=== PATIENT | male | born 1965 | race Caucasian/White ===

== ENCOUNTER 2018-11-10 09:46 | Emergency (ER) | payer OTHER, SELFPAY ==
[2018-11-10 09:51] VITALS: BP 124/82; PULSE 60; RESP 14; TEMP 36.5; O2SAT 100
--- NOTE | 2018-11-10 10:01 | DI.RAD_ITS ---
SYMPTOM/DIAGNOSIS: MEDIAL KNEE PAIN, TIB PLAT PAIN RIGHT KNEE: No fracture or joint effusion is seen. The joint spaces are well maintained. IMPRESSION: Negative right knee
--- NOTE | 2018-11-10 10:09 | W.ED.GENAD ---
Discharge Plan Disposition Patient Disposition: HOME Condition: Good Discharge Details Chief Complaint: Orthopedic Clinical Impression: Right knee sprain ED Provider: Gerry Godinez Home Meds and New Rx's Prescriptions: No Action No Known Home Meds RF: 0 Discharge Instructions Instructions: Knee Sprain (ED) Additional Instructions: At this time your x-ray is negative for any evidence of fracture. Am concerned for meniscal injury as well as medial collateral ligament injury. I also suspect that some of your pain is from mild Garrido's cyst. Please take Tylenol and Motrin daily to help with the swelling and pain. Please ice your knee frequently, keep the brace on at all times use your crutches to reduce weight and impact on your knee for the next 1 to 2 weeks. We will schedule follow-up with the physician office specialist for you. If you notice any worsening of your symptoms, or any new symptoms such as vomiting, diarrhea, fever, chills, shortness of breath, chest pain, numbness, weakness, or fainting , please return immediately to the emergency department for reevaluation. Please follow up with your primary care provider as soon as possible for reassessment and reevaluation. As always, it was a pleasure participating in your medical care today. Medical Decision Making This is a pleasant 53-year-old male with no significant past medical history who presents today for evaluation of right knee pain. Patient is an avid runner and regularly runs 15 miles. 3 days ago he was running and while running developed a mild ache in his right posterior knee. When he was running a shorter run the subsequent day the posterior pain notably improved however he then developed pain on the medial aspect of his right knee. Worse with movement. Pain is continued he describes it as severe and aching in nature. Worse with movement palpation. Exam demonstrates no joint or ligamentous laxity however he does have notable pain with Jessica's test, as well as valgus stressing. No significant crepitus. He is able to ambulate and bear weight but does have some mild to moderate pain with this. No numbness or tingling, no redness, warmth, or swelling. No clinical evidence of infection. No clinical history of trauma, fall, pop, or coming down hard during his run. X-ray was ordered and is negative for acute process or fracture. It was reviewed with Dr. Brice, and she also sees no clinical evidence of tibial plateau injury. We did discuss further imaging as well as the risks and benefits of this. At this time through shared decision making process we will hold off on any CT scan of the knee. Clinically I do not think that he demonstrates signs and symptoms of a significant tibial plateau fracture. We will give a hinged knee brace, crutches, recommend NSAIDs and ice. Because of his notably proactive running habits, I recommended that he remains off of his knee with no significant running or weightbearing until reassessed by orthopedics. We will set up outpatient orthopedic follow-up for further evaluation. I have extensively reviewed the treatment plan and discharge instructions with the patient. I have addressed all patient concerns at this time. The patient was made aware of what symptoms to monitor for that would warrant a return to the emergency department. Discussed the plan with the patient, they demonstrate verbal understanding and agreement with our assessment and plan at this time. HPI General Date/Time Provider Initiated Documentation: 11/10/18 09:50. HPI Narrative: This is a pleasant 53-year-old male with no significant past medical history who is an avid runner. Patient presents today with pain on the medial aspect of his right knee. He states that 3 days ago he went for a 15 mile run which is very normal for him. At that time he had some mild achiness in the posterior popliteal space. Unchanged with NSAIDs. He took another short run yesterday, and then subsequently developed notable achy stabbing knee pain on the medial aspect of his right knee. Significantly worse with ambulation and movement. He denies any falls, trauma, landing hard on his foot, hearing any pop, or other abnormality. He denies any previous injury to this knee, he denies any steroid use, recent fluoroquinolone use, fever, chills, redness or swelling. He has been using NSAIDs but to no avail for this pain as well. No radiation proximally or distally. No associated numbness or tingling or weakness. No other complaints at this time. No other modifying factors. No recent surgery, pertinent family history, IV or illicit drug use. Related Data Home Medications Medication Instructions Recorded Confirmed Unknown [No Known Home Meds] 11/10/18 11/10/18 Allergies Allergy/AdvReac Type Severity Reaction Status Date / Time cat dander AdvReac Mild asthma/dysp Unverified 11/10/18 09:56 duarte General Stated Complaint: Orthopedic MARIANNE: 4 Review of Systems Review of Systems All systems reviewed & are unremarkable except as noted in HPI and below PFSH Social History Smoking/Tobacco Use Status: Never Drug use: Never Do you feel safe at home: Yes Do you feel safe in your relationship?: Yes Exam Narrative Exam Narrative: 1.Const: Well-nourished, Well-developed, appearing stated age 2.Eyes: PERRL, no conjunctival injection, and symmetrical lids. 3.ENT: Atraumatic external nose and ears. Moist MM. Neck: Symmetric, trachea midline, No thyromegaly. 4.CVS: +S1/S2, No murmurs or gallops. Peripheral pulses 2+ and equal in all extremities. Brisk capillary refill in all extremities. 5.RESP: Unlabored respiratory effort. Clear to auscultation bilaterally. No wheezes rales or rhonchi 6.GI: Soft, Nontender/Nondistended, No hepatosplenomegaly. No guarding or rebound. 7.MSK: Normocephalic/Atraumatic, Extremities w/o deformity. No cyanosis or clubbing, Normal movement of all extremities. Right knee: The knee is stable to varus, valgus, and anterior drawer stress. Pain is notably worsened with valgus stressing. no deformity. Patellar grind test is negative. Jessica test is notably positive for pain on the medial aspect of the knee. Patient is able to walk but with mild pain. No edema or warmth to the joint. No ttp to the patella or fibular head. Mild pain over the tibial plateau on the medial aspect. No swelling, edema or warmth. No crepitus with flexion or extension of the knee. Normal strength throughout. 8.Skin: Warm, Dry. No rashes or lesions. 9.Neuro: visual merchandising manager II-XII grossly intact. Sensation grossly intact, no focal neurologic deficits. 10.Psych: (AAO) x3. Appropriate mood and affect Course Vital Signs Temperature 36.5 C 11/10/18 09:51 Pulse 60 11/10/18 09:51 Respiratory Rate 14 11/10/18 09:51 Blood Pressure 124/82 11/10/18 09:51 Pulse Oximetry 100 11/10/18 09:51 Temperature 36.5 C 11/10/18 09:51 Temperature Source Skin 11/10/18 09:51 Pulse 60 11/10/18 09:51 Respiratory Rate 14 11/10/18 09:51 Respiratory Effort 11/10/18 09:58 Blood Pressure 124/82 11/10/18 09:51 Blood Pressure Position Sitting 11/10/18 09:51 Pulse Oximetry 100 11/10/18 09:51 Oxygen Delivery Method Room Air 11/10/18 09:51 Oxygen Flow Rate 0 11/10/18 09:51 Pain Level 2 11/10/18 09:51 Comment ibuprofen this morning 11/10/18 09:51
== END 2018-11-10 10:34 | disposition home or self-care (01) ==
PROVIDERS: Emergency Provider Student in an Organized Health Care Education/Training Program
DX: S83.91XA Sprain of unspecified site of right knee, initial encounter (principal); X50.9XXA Other and unspecified overexertion or strenuous movements or postures, initial encounter; Y93.02 Activity, running
CPT/HCPCS: 29505; 73562; 99283; E0114; L1820

== ENCOUNTER 2018-12-20 08:11 | Outpatient (CLI) | payer BC, SELFPAY ==
--- NOTE | 2018-12-20 08:00 | DI.MRI_ITS ---
EXAM: MR LOWER JOINT RT WO CLINICAL HISTORY: Internal derangement, M23.91, ? harding's cyst or meniscus tear. TECHNIQUE: Multiplanar multisequence MRI was performed. COMPARISON: XR knee RT 3V AP,lat,dangelo from 11/10/2018 FINDINGS: The marrow signal is normal. There is a normal quantity of joint fluid. The cruciate ligaments ap pear intact. There is mild edema around the medial collateral ligament but no evidence of a focal te ar. There is abnormal high signal in the body and posterior horn of the medial meniscus. In the pos terior, there is a small radial tear. In the body and extending into the posterior horn, there is an oblique tear. The anterior horn appears intact. The lateral meniscus appears normal. No cartilage defects are seen. IMPRESSION: Radial tear as well as horizontal tear of the posterior horn and body of the medial meniscus. Quest ion of a medial collateral ligament sprain.
--- NOTE | 2018-12-20 15:11 | DI.VRAD_ITS ---
PROCEDURE INFORMATION: Exam: MR Right Lower Extremity Without Contrast, Knee Exam date and time: 12/20/2018 8:35 AM Clinical history: 53 years old, male; Pain; Knee; Right; Patient HX: Internal derangement, ? garrido's cyst. TECHNIQUE: Imaging protocol: MR of the Right Lower extremity without contrast. Exam focused on the knee. COMPARISON: No relevant prior studies available. FINDINGS: BONES/JOINTS/CARTILAGE: Patellofemoral compartment: Trace joint effusion. Femorotibial compartments: Unremarkable. Extensor mechanism: Unremarkable. No tear. Medial meniscus: Displaced tear of the posterior horn of the medial meniscus. Lateral meniscus: Unremarkable. No tear. Medial capsule/supporting structures: Unremarkable. No tear. Lateral capsule/supporting structures: Unremarkable. No tear. Anterior cruciate ligament: Unremarkable. No tear. Posterior cruciate ligament: Unremarkable. No tear. Soft tissues: No popliteal/Garrido's cyst. IMPRESSION: Medial meniscal tear. Dictated and Authenticated by: Taye Cruz MD. Ordering:JOSHUA Burns MD
== END 2018-12-20 08:31 ==
PROVIDERS: Visit Provider Student in an Organized Health Care Education/Training Program
DX: M25.561 Pain in right knee (principal); M23.91 Unspecified internal derangement of right knee; S83.232A Complex tear of medial meniscus, current injury, left knee, initial encounter; S83.412A Sprain of medial collateral ligament of left knee, initial encounter
CPT/HCPCS: 73721

== ENCOUNTER 2019-01-12 06:06 | Day surgery (SDC) | payer BC, SELFPAY ==
[2019-01-12] VITALS (10 sets, daily range): BP systolic 95–140; BP diastolic 63–82; PULSE 56–75; RESP 10–18; TEMP 36.3–36.5; O2SAT 96–99
[2019-01-12] MEDS: Lactated Ringers 1,000 ML 100 ML IV ×2 (06:42→08:39)
--- NOTE | 2019-01-12 07:20 | W.PM.DSUDISC ---
Discharge Plan Disposition Patient Disposition: HOME Condition: Stable Discharge Details Reason For Visit: Right knee medial meniscus tear surgery Attending Provider: Grant Rahman Primary Care Provider: No,Local Home Meds and New Rx's Prescriptions: New naproxen 250 mg tablet 250 mg PO BID PRN (Reason: pain, moderate) Qty: 60 RF: 0 oxycodone 5 mg tablet 5 mg PO Q4H PRN (Reason: pain, severe) Qty: 12 RF: 0 Discharge Instructions Additional Instructions: Surgery: Right knee arthroscopy with partial medial meniscectomy Activity: Weightbearing as tolerated with crutches as needed. Focus on obtaining full knee extension and isometric quad exercises. Progressive gentle knee flexion as pain and swelling allow. No running, jogging, bicycle or other strenuous knee exercise until after 2-week follow-up appointment. Prescriptions: Aspirin 325 mg take 1 daily to prevent a blood clot Naproxen 250 mg take 1-2 every 12 hours with a meal as needed for moderate pain Oxycodone 5 mg take 1-2 every 4-6 hours as needed for severe pain You may use [id number] Tylenol (acetaminophen) as needed for mild pain. These pain medications may be taken all at once or in different combinations as needed. Also, recommend Colace (docusate) as a stool softener as surgery and pain medicine cause constipation. Dressings: Leave dressing in place for 2 to 3 days. Then may remove and cover incisions with Band-Aids as needed. May shower after 5 days. Follow-up: 10-[address] Rahman Please call the office during business hours with any questions or concerns. Let us know right away if you develop any redness, drainage, fevers, chest pain, or trouble breathing. Do not drink alcohol or drive for at least 24 hours after anesthesia. Referrals: Grant Rahman MD [ [facility] STAFF PHYSICIAN] - Discharge Orders Discharge Orders: Discharge Order (Routine); Ordered 01/12/19 Ordered By: Grant Rahman DS: Diagnosis Discharge Diagnosis (1) Right knee meniscal tear: Status: Acute
[2019-01-12] MEDS: ceFAZolin 2 GM/50 ML BAG IVPB (07:50)
[2019-01-12] MEDS: Bupivacaine 0.25% Pres-Free 10 ML VIAL (08:13)
[2019-01-12] MEDS: EPINEPHrine 1 MG/ML AMP pres-free (08:13)
--- NOTE | 2019-01-12 09:40 | W.PM.OP ---
Date of service: 01/12/19 Time of Service: 09:40 Operative Note Operative Note DATE OF PROCEDURE: 01/12/19 PRE-OP DIAGNOSIS: Right knee complex medial meniscus tear POST-OP DIAGNOSIS: other (1. Right knee complex medial meniscus tear 2.Extensive synovitis 3. Medial compartment chondromalacia) PROCEDURE: 1. Right knee arthroscopy with partial medial meniscectomy and medial compartment chondroplasty 2. Right knee synovectomy greater than 2 compartments SURGEON: Grant Rahman DEPUTY OF COUNTER INTELLIGENCE: None None ANESTHESIA: GETA and local ESTIMATED BLOOD LOSS: 5 COMPLICATIONS: None Patient was transported to: PACU Patient's condition: stable Implants: None Indications: Please see complete medical record for details. Findings: Complex posterior horn medial meniscus tear with a large parrot-beak tear extending into the meniscal body and a horizontal component extending into the posterior horn and a radial component at the junction of the body in the posterior horn extending to the capsule Limited area of grade 1-2 chondromalacia medial compartment Extensive engaging synovitis in the patellofemoral , anteromedial , and anterolateral compartment Intact lateral meniscus. Intact ACL. Procedure Description: The patient was taken to the operating room and transferred to the operating room table. Anesthesia was induced. All bony prominences were well-padded. Preoperative antibiotics were administered. The right knee was prepped and draped in the usual sterile fashion. The correct patient, procedure, and side of the procedure were all verified prior to incision. The portal sites were pre-injected with 0.25% bupivacaine with epinephrine. A horizontal incision was made for the anteroteral portal and the arthroscope was introduced atraumatically into the patellofemoral compartment with the knee in full extension. A horizontal anteromedial portal was made with the knee in extension and a probe was inserted. A complete diagnostic arthroscopy was performed with findings noted above. A small shaver was used to perform a complete removal of pathologic anterolateral anteromedial synovitis. This allowed better visualization of the complex medial meniscus tear. A small area of anterior femoral chondromalacia was debrided of loose chondral flaps. A small shaver was used to debride the edges and define the meniscus tear.Unfortunately, the radial component had full extension peripherally to the capsule. Using a combination of hand instruments including meniscal biters and a power shaver and working through the anteromedial and anterolateral compartments the meniscus was debrided of all torn tissue. Care was taken to preserve as much meniscus tissue was possible. The meniscal remnant was probed and found to have a stable margin. Next, the engaging synovitis in the patellofemoral compartment was removed. The knee was irrigated using the arthroscope pump and suction and all loose bodies of meniscal and synovial tissue were removed. An 18-gauge needle was inserted superior laterally into the knee. All fluid was drained from the knee. The arthroscopic portals were closed using 3-0 Monocryl in a buried fashion. Steri-Strips were applied across the incisions. 25 cc of 0.25% bupivacaine with epinephrine and 4 mg of morphine was injected into the knee. Dry 4 x 4 gauze and ABD were applied about the front of the knee and wrapped in sterile Webril. An Jose wrap was applied over this bandage. The patient awoke from anesthesia without complication was taken to recovery room in stable condition.
[2019-01-12] MEDS: fentaNYL 100 MCG/2 ML VIAL IVP ×2 (10:10→10:25)
[2019-01-12] MEDS: oxyCODONE 5 MG TAB PO (12:14)
== END 2019-01-12 13:13 | disposition home or self-care (01) ==
PROVIDERS: Visit Provider Student in an Organized Health Care Education/Training Program
PROC: (CPT 29870; principal; 2019-01-12 07:30)
DX: S83.231A Complex tear of medial meniscus, current injury, right knee, initial encounter (principal); M65.9 Synovitis and tenosynovitis, unspecified; M94.261 Chondromalacia, right knee; X58.XXXA Exposure to other specified factors, initial encounter; Y93.02 Activity, running
CPT/HCPCS: 29876; 29881; J0131; J0171; J0690; J1100; J1885; J2250; J2405; J3010

== ENCOUNTER 2020-01-16 12:40 | Outpatient (CLI) | payer BC, SELFPAY ==
--- NOTE | 2020-01-16 | DI.RAD_ITS ---
EXAM: XR FINGER LT RING EXAM DATE/TIME: CLINICAL HISTORY: LT HAND PAIN, M79.642. TECHNIQUE: 2D digital imaging was performed. COMPARISON: None. FINDINGS: BONES: No acute fracture is present. No bony destructive lesion is seen. JOINTS: No dislocation is present. SOFT TISSUE: Normal. IMPRESSION: No evidence of acute fracture or dislocation. DATA REPOSITORY: RADIATION DOSE DELIVERED:
== END 2020-01-16 13:00 ==
PROVIDERS: Visit Provider Nurse Practitioner Family
DX: M79.642 Pain in left hand (principal)
CPT/HCPCS: 73140

== ENCOUNTER 2020-05-22 11:42 | Outpatient (CLI) | payer BC, SELFPAY ==
--- NOTE | 2020-05-22 11:40 | DI.RAD_ITS ---
EXAM: XR FINGER LT RING EXAM DATE/TIME: CLINICAL HISTORY: continued pain of left ring finger. TECHNIQUE: 2D digital imaging was performed. COMPARISON: None. FINDINGS: BONES: No acute fracture is present. No bony destructive lesion is seen. JOINTS: No dislocation is present. SOFT TISSUE: Normal. IMPRESSION: No evidence of acute fracture or dislocation. DATA REPOSITORY: RADIATION DOSE DELIVERED:
== END 2020-05-22 11:43 | disposition home or self-care (01) ==
LOC: DIORS 11:42
PROVIDERS: PCP Nurse Practitioner Family; Referring Provider Nurse Practitioner Family; Visit Provider Student in an Organized Health Care Education/Training Program
DX: M79.645 Pain in left finger(s) (principal)
CPT/HCPCS: 73140

== ENCOUNTER 2020-10-31 09:19 | Outpatient (REF) | payer BC, SELFPAY ==
[2020-10-31 14:56] LABS: ALT 36 U/L (16-63); AST 18 U/L (15-37); Albumin 3.8 g/dL (3.4-5.0); Alkaline Phosphatase 51 U/L (46-116); Anion Gap 7.3 mmol/L (3-11); BUN 16 mg/dL (7-18); Bilirubin, Total 0.7 mg/dL (0.2-1.0); CO2 28.7 mmol/L (21.0-32.0); Calcium 9.4 mg/dL (8.5-10.1); Calculated LDL 128 mg/dL (<100); Chloride 107 mmol/L (98-107); Cholesterol 206 mg/dL (<200); Glucose 104 mg/dL (74-106); HDL Cholesterol 61 mg/dL (40-60); Potassium 5.4 mmol/L (3.5-5.1); Sodium 143 mmol/L (136-145); Total Protein 6.9 g/dL (6.4-8.2); Triglyceride 87 mg/dL (<150)
== END 2020-10-31 09:20 | disposition home or self-care (01) ==
LOC: NCHCN 09:19
PROVIDERS: PCP Nurse Practitioner Family; Visit Provider Nurse Practitioner Family
DX: E78.5 Hyperlipidemia, unspecified (principal); E88.81 Metabolic syndrome and other insulin resistance; Z87.442 Personal history of urinary calculi
CPT/HCPCS: 80053; 80061

== ENCOUNTER 2021-01-06 11:02 | Outpatient (CLI) | payer BC, SELFPAY ==
--- NOTE | 2021-01-06 10:45 | DI.RAD_ITS ---
Exam(s) XR HIP RT COMPLETE AP PELVIS EXAM: XR HIP RT COMPLETE AP PELVIS INDICATION: RIGHT HIP PAIN. COMPARISON: No exams were available for comparison TECHNIQUE: 2D digital imaging was performed. FINDINGS: Mild bilateral acetabular spurring. Hip joint space is well maintained. Small calcification adjace nt to pubic symphysis. SI joints unremarkable. IMPRESSION: Mild degenerative changes. DATA REPOSITORY: RADIATION DOSE DELIVERED:
== END 2021-01-06 11:03 | disposition home or self-care (01) ==
LOC: DIORS 11:03
PROVIDERS: PCP Nurse Practitioner Family; Visit Provider Student in an Organized Health Care Education/Training Program
DX: M25.551 Pain in right hip (principal); M16.11 Unilateral primary osteoarthritis, right hip
CPT/HCPCS: 73502

== ENCOUNTER 2021-10-02 14:15 | Outpatient (CLI) | payer BC, SELFPAY ==
[2021-10-02 14:30] LABS: HCT 42.5 % (40.0-50.0); HGB 14.9 g/dL (13.5-17.5); MCHC 35.1 % (32.0-36.0); MCV 86 fL (80-95); MPV 9.1 fL (8.0-11.0); Platelet Count 284 10^3/uL (130-400); RBC 4.96 10^6/uL (4.36-5.78); RDW-SD 37.6 fL; WBC 7.44 10^3/uL (4.4-10.8)
[2021-10-02 15:02] LABS: ALT 42 U/L (16-63); AST 17 U/L (15-37); Alkaline Phosphatase 59 U/L (46-116); Anion Gap 8.7 mmol/L (3-11); BUN 17 mg/dL (7-18); CO2 25.3 mmol/L (21.0-32.0); Calcium 9.4 mg/dL (8.5-10.1); Chloride 104 mmol/L (98-107); Ferritin 140 ng/mL (26-388); Glucose 105 mg/dL (74-106); Sodium 138 mmol/L (136-145); Total Protein 7.7 g/dL (6.4-8.2)
[2021-10-02 15:06] LABS: D-Dimer 188 ng/mlFEU (<500)
[2021-10-02 16:12] LABS: Iron 117 ug/dL (65-175)
[2021-10-05 09:48] LABS: PSA, Screening 1.2 ng/mL (<=3.5)
== END 2021-10-02 14:16 | disposition home or self-care (01) ==
PROVIDERS: PCP Nurse Practitioner Family; Visit Provider Nurse Practitioner Family
DX: Z00.00 Encounter for general adult medical examination without abnormal findings (principal); R06.09 Other forms of dyspnea; E78.5 Hyperlipidemia, unspecified; Z12.5 Encounter for screening for malignant neoplasm of prostate
CPT/HCPCS: 36415; 80053; 84153; 85027; 82728; 83540; 85379

== ENCOUNTER 2021-10-27 15:54 | Outpatient (CLI) | payer BC, SELFPAY ==
--- NOTE | 2021-10-27 15:30 | DI.RAD_ITS ---
Exam(s) XR ANKLE LT COMPLETE EXAM: XR ANKLE LT COMPLETE CLINICAL HISTORY: LEFT ANKLE PAIN. TECHNIQUE: 2D digital imaging was performed. COMPARISON: No exams were available for comparison FINDINGS: 3 views No evidence of fracture or widening of the mortise. Talar dome appears unremarkable. No degenerative changes. Accessory ossicle noted lateral the cuboi d bone. IMPRESSION: No fracture evident DATA REPOSITORY: RADIATION DOSE DELIVERED:
== END 2021-10-27 15:55 | disposition home or self-care (01) ==
LOC: DIORS 15:54
PROVIDERS: PCP Social Worker Clinical; Referring Provider Social Worker Clinical; Visit Provider Student in an Organized Health Care Education/Training Program
DX: M25.572 Pain in left ankle and joints of left foot (principal)
CPT/HCPCS: 73610

== ENCOUNTER → 2021-11-10 00:50 | Outpatient (CLI) | payer BC, SELFPAY ==
--- NOTE | 2021-11-10 09:00 | ETT_ITS ---
APPROVED REPORT Exam: Exercise Treadmill Patient Location: Out-Patient Room/Bed: Stress Nurse: Marianne Clay RN Ordering Provider:HARPAL GARCIA, Contact Number: [phone] BMI: 23.62 Baseline Rhythm: Sinus Bradycardia Indications: CHEST PAIN, EXERTIONAL SHORTNESS OF BREATH Medical History Medical History: GERD, HLD Cardiac Medications: None Allergies: No known drug allergies Cardiac Risk Factors: Hyperlipidemia Pretest Chest Pain Characteristics: No chest pain Exercise History: Physically active Physical Disabilities: None Lung Sounds: Clear to auscultation Heart Sounds: Regular Stress Test Details Test: Exercise stress testing was performed using a Raymundo protocol. Rest Stress HR Resting HR Supine: 59 bpm Max Heart Rate (APMHR): 163 bpm Resting HR Standin bpm Target HR (85% APMHR): 138 bpm Max HR Achieved: 167 bpm % of APMHR: 102 Recovery HR: 97 bpm HR response to stress: Normal HR response to stress BP Resting BP Supine: 132/80 mmHg Resting BP Standin/82 mmHg Max BP: 190/90 mmHg Recovery BP: 124/82 mmHg BP response to stress: Normal blood pressure response to stress. ECG Resting ECG: Sinus Bradycardia Ectopy: None Stress ECG: Sinus Tachycardia ST Change: No significant ST segment changes noted Arrhythmia: rare PAC Recovery ECG: Sinus Rhythm Recovery ST Change: Horizontal ST depression Lead(s): inferior leads Recovery ST Deviation: 0.5-1.0 mm Recovery Arrhythmia: occasional PVC Clinical Reason for Termination: Fatigue Stress Symptoms: Chest pain, Dyspnea, General Fatigue Exercise duration: 19 min08 sec Highest Stage Reached: Stage 7: 6.0 mph at 22% grade. Exercise capacity: 18.28 METs Warren Treadmill Score: 13.6 Rate Pressure Product: [id number] Stress ECG Conclusion 1. Resting electrocardiogram was within normal limits 2. Patient exercised on the Raymundo protocol and completed a workload of 18.28 METS, well above average exercise capacity 3. Normal heart rate and blood pressure response to exercise. The patient achieved greater than 100% of predicted heart rate for age 4. There was no electrocardiographic evidence of myocardial ischemia 5. There were no significant dysrhythmias Warren Treadmill Score is 13.6 which is Low risk. Stress Test Summary STAGE Time (mins) Speed (mph) Grade (%) HR BP SpO2 SYMPTOMS METS Supine 59 132/80 Standing 69 112/82 96% 1 3 1.7 10 87 120/72 95% 4.5 2 6 2.5 12 99 132/70 95% 7 3 9 3.4 14 115 146/78 95% 10 4 12 4.2 16 129 178/84 94% 13 5 15 5.0 18 148 178/88 95% 15 6 18 5.5 20 162 3/10 sternal CP 18 1 min recovery 141 190/90 95% 1/10 CP 3 min recovery 98 190/84 97% CP Resolved. 6 min recovery 93 132/76 9 min recovery 97 124/82
== END ==
PROVIDERS: PCP Social Worker Clinical; Visit Provider Nurse Practitioner Family
DX: R07.9 Chest pain, unspecified (principal); R06.09 Other forms of dyspnea
CPT/HCPCS: 93017